=== PATIENT | male | born 1985 | race Caucasian/White ===

== ENCOUNTER 2020-06-23 19:52 | Emergency (ER) | payer BC ==
[~2020-06-23] VITALS: Ht 182.9 cm; Wt 93.2 kg
[2020-06-23 20:19] VITALS: BP 171/81; PULSE 83; TEMP 98.3
== END 2020-06-23 21:22 | disposition left against medical advice (07) ==
LOC: COL.ER 19:52
DX: T14.90XA Injury, unspecified, initial encounter (principal)